=== PATIENT | female | born 1950 | race Caucasian/White ===

== ENCOUNTER 2023-08-03 17:32 | Emergency (ER) | payer SELFPAY ==
[~2023-08-03] VITALS: Ht 152.4 cm; Wt 48.1 kg
[2023-08-03 17:55] VITALS: BP 146/82; PULSE 90; RESP 16; TEMP 98.4; O2SAT 98
[2023-08-03] MEDS ORDERED: CEPH-588 PO (18:40)
== END 2023-08-03 18:58 | disposition home or self-care (01) ==
LOC: MED 17:32
DX: L03.011 Cellulitis of right finger (principal)
CPT/HCPCS: 99283